=== PATIENT | male | born 1940 | race Caucasian/White ===

== ENCOUNTER 2020-01-01 14:45 | Outpatient (CLI) | payer MEDICARE, SELFPAY | END 2020-01-01 14:46 | disposition home or self-care (01) | LOC: CHSLAB 14:51 | PROVIDERS: Visit Provider Specialist | DX: C44.629 Squamous cell carcinoma of skin of left upper limb, including shoulder (principal); C44.622 Squamous cell carcinoma of skin of right upper limb, including shoulder | CPT/HCPCS: 88305 ==

== ENCOUNTER 2020-12-12 12:07 | Outpatient (CLI) | payer MEDICARE, SELFPAY | END 2020-12-12 12:08 | disposition home or self-care (01) | LOC: CHSLAB 12:11 | PROVIDERS: Visit Provider Specialist | DX: C44.622 Squamous cell carcinoma of skin of right upper limb, including shoulder (principal) | CPT/HCPCS: 88305 ==

== ENCOUNTER 2021-06-02 08:54 | Outpatient (CLI) | payer MEDICARE, SELFPAY | END 2021-06-02 08:55 | disposition home or self-care (01) | LOC: CHSLAB 08:57 | PROVIDERS: PCP Internal Medicine; Visit Provider Specialist | DX: C44.622 Squamous cell carcinoma of skin of right upper limb, including shoulder (principal) | CPT/HCPCS: 88305 ==

== ENCOUNTER 2023-08-30 12:13 | Outpatient (CLI) | payer MEDICARE, SELFPAY | END 2023-08-30 12:14 | disposition home or self-care (01) | LOC: CHSLAB 12:17 | PROVIDERS: PCP Internal Medicine; Visit Provider Specialist | DX: C44.629 Squamous cell carcinoma of skin of left upper limb, including shoulder (principal) | CPT/HCPCS: 88305 ==

== ENCOUNTER 2025-01-24 14:50 | Outpatient (CLI) | payer MEDICARE, SELFPAY ==
--- OUTSIDE RECORDS SUMMARY | 2025-01-24 16:47 | XMS_ITS | Data Portability ---
Author Organization [facility], [address] [facility] [place] ([place]) Address [address] [place] [address] Care Team Providers Care Short Filler Bunch Machine Operator Name Role Phone DARLENE PHAM Primary Care Provider [phone] Assessment Encounter Date Assessment Date Assessment LastModified by Organization Details LastModified Time 08/16/2024 08/16/2024 1. Hypertension stable. Continue current medications. He had labs in December and will return in 6 months at which time he will be due for laboratory testing and monitoring of his kidney function electrolytes. 2. He has a report of type 2 diabetes. A1c today is very normal. Will continue to monitor. He is not on any medication for diabetes. 3. History of prostate cancer. He will be due for another PSA in December. He knows to call with any concerns and has had no problems with urination. 4. Actinic keratosis. 2 lesions were treated with liquid nitrogen. He knows to return in 1 month if needed for retreatment. He does see dermatology also. He refuses vaccinations. I think is a political issue for him. See him back in 6 months or as needed for follow-up. Total amount of time 30 minutes [id number] Not available 08/19/2024 16:04:42 Plan of Treatment Reminders Order Date Submit Date Provider Last Modified By Organization Details Last Modified Time Details Appointments [facility] Patient 15.EST 2024 11:00A M Dr. Darleen Mcnulty Not available Not available Not available Lab None recorded . Referral None recorded . Procedures None recorded . Surgeries None recorded . Imaging None recorded . Medication Orders None recorded . Patient TargetsNo targets recorded. Patient InstructionsNo instructions recorded. Reason for Referral None Reported. Results Created Date Observation Date Name Description Value Unit Range Abnormal Flag Note LastModifiedBy Organization Detail LastModifiedTime 08/16/20 24 08/16/2024 hemog lobin A1C, finge rstic k fingerstick A1C endo Not Available [facility] [address] [place] [address], [id number], 08/16/2024 17:49:14 08/16/20 24 08/16/2024 hemog lobin A1C, amparo rstic k hemoglobin A1C, finger 5.8 %_A1C 4.3 - 5.6 high Not Available [facility] [address] [place] [address], [id number], 08/16/2024 17:49:14 08/16/20 24 08/16/2024 hemog lobin A1C, amparo rstic k fingerstick estimated ave [address] Not Available [facility] [address], [address], 08/16/2024 17:49:14 Result Notes None recorded. Problems Name Problem SNOMED Code Status Onset Date Resolution Date Notes Provider Name and Address Organization Details Recorded Time Fatigue 31747226 Active 2023 Elias Manriquez PA-C [address] [place] [address], [phone], [facility] 4 11:13:04 Type 2 diabetes mellitus 39235208 Active 2023 [facility] 4 22:42:13 Essential hypertensio n 63695758 Active 2023 [facility] Matt [facility] 4 22:43:28 History of malignant neoplasm of prostate 124446769 Active 2023 Olena Matt [facility] 4 22:43:44 Actinic keratosis 549898388 Active 2023 Darleen Mcnulty MD [address] [place] [address], [phone], [facility] 4 16:03:10 Problem Notes None recorded. Procedures Surgical History Date Name Laterality Status Provider Name and Address Organization Details Recorded Time anal sphincterotomy completed Nathanael Gutierrez [facility] 08/15/2024 22:45:45 Imaging Results None recorded. Procedure Notes None recorded. Medical Equipment None Reported. Allergies No known drug allergies Medications Name Sig Start Date Stop Date Status Note LastModified by Organization Details LastModified Time lisinopril 10 mg tablet Take 1 tablet by mouth once daily 2024 active Not Available Not Available Not Avai lable hydrochlorothiaz syed 25 mg tablet Take 1 tablet by mouth once daily 2024 active Not Available Not Available Not Avai lable Baby Aspirin 81 mg chewable tablet Chew 1 tablet every day by oral route. active Not Available Not Available No t Available Vitals Date Recorded Body height Body mass index (BMI) Body weight Body temperature Heart rate Oxygen saturation Oxygen saturation in Arterial blood by Pulse oximetry Systolic blood pressure Diastolic blood pressure Provider Name and Address Organization Details Last Updated DateTime 165.1 cm 27.8 kg/m2 16920.9 3 g 97.8 [degF] 74 /min 97 % 97 % 130 mm[Hg] 78 mm[Hg] [place] [facility] 16:56:21 Social History None recorded. Functional Status None recorded. Mental Status None recorded. Family History Relationship Description Onset Age of this Age Resolved Age Notes LastModified by Organization Details LastModified Time Father Family history of Cardiovascul ar disease [email or web address] Not available 08/15 22:44:48 Mother Family history of malignant neoplasm [email or web address] Not available 2023 22:45:04 Medical History No medical history recorded. Past Encounters Encounter ID Performer Location Encounter Start Date Encounter Closed Date Diagnosis/Indication Diagnosis SNOMED-CT Code Diagnosis ICD10 Code Diagnosis Note [id number] MD [facility] [address] [facility] [place] [address] 08/16/2024 16:15:34 08/17/2024 16:30:18 Essential hypertension 17506240 I10 History of malignant neoplasm of prostate 133290698 Z85.46 Type 2 carter betes mellitus 43540263 E11.9 Actinic keratosis 007 L57.0 Health Concerns Section Related Observation LastModified by Organization Detai ls LastModified Time None Recorded Concern Status LastModified by Organization Details LastModified Time None Recorded Advance Directives Directive None Recorded Payers Encounter Date Sequence Insurance Name Policy Number Policy Lewis Covered Member ID Lewis Member ID Guarantor Name 08/16/2024 1 [employer] (MEDICARE REPLACEMENT PPO) [id number] Bob Combs [id number] Bob Combs Notes Date Note Type Note Provider Name and Address Organization Details Recorded Time 08/16/2024 text/html Bob is a 89-year-old gentleman who lives in the community. He has hypertension, prostate cancer in the past. He has actinic keratosis on his left forearm and left index finger that he ask if I would treat. He stays physically active. He denies any problems today. Darleen Mcnulty MD [address] [facility], [place], [address], [facility] 08/19/2024 16:06:06
--- OUTSIDE RECORDS SUMMARY | 2025-01-24 16:47 | XMS_ITS | Clinical Summary ---
Author Organization [facility] Address [facility] [place] [address] Care Team Providers Care Long Lines Operator Name Role Phone Chastity Marks MD Primary Care Provider [phone] Tammi Webber MD Unavailable [phone] Beverly Espinosa APNP Unavailable [phone] Allergies No known active allergies Medications hydrochlorothia zide 25 MG tablet Take 25 mg by mouth every morning. Active aspirin EC (ASPIRIN) 81 MG EC tablet Take 81 mg by mouth daily. Active lisinopril 40 MG tablet Take 20 mg by mouth daily. 07/14/2018 Active PROAIR HFA 108 (90 Base) MCG/ACT inhaler Inhale 1 Inhaler into the lungs 3 (three) times a day. 12/28/2018 Active Active Problems Problem Noted Date Diagnosed Date Sialadenitis 12/31/2018 Premature atrial contractions 08/20/2018 Hypertension, essential 08/20/2018 Hypercholesterolemia 08/20/2018 Diabetes mellitus type 2, no ninsulin dependent ([facility] [address]) 08/20/2018 H/O poliomyelitis 08/20/2018 Family History Medical History Relation Comments Heart Attack Father Cancer Mother Relation Status Comments Father Mother Social History Tobacco Use Types Packs/Day Years Used Date Smoking Tobacco: Former Smokeless Tobacco: Never Alcohol Use Standard Drinks/Week Comments No 0 (1 standard drink = 0.6 oz pur e alcohol) AUDIT-C Answer Date Recorded Frequency of Alcohol Consumption Never 08/14/2018 Average Number of Drinks Not on file 018 Frequency of Binge Drinking Not on file 11/2017 Sex and Gender Information Value Date Recorded Sex Assigned at Not on file Legal Sex Male 9:15 PM PRINCIPAL TECHNOLOGIST Gender Identity Not on file Sexual Orientation Not on file Last Filed Vital Signs Vital Sign Reading Time Taken Comments Blood Pressure 154/75 01/02/2019 8:52 AM PRINCIPAL TECHNOLOGIST Pulse 66 01/02/2019 8:52 AM PRINCIPAL TECHNOLOGIST Temperature 36.7 C (98.1 F) 01/02/2019 8:52 AM PRINCIPAL TECHNOLOGIST Respiratory Rate 16 01/02/2019 4:25 AM PRINCIPAL TECHNOLOGIST Oxygen Saturation 98% 01/02/2019 8:52 AM PRINCIPAL TECHNOLOGIST Inhaled Oxygen Concentration - - Weight 83.8 kg (184 lb 11.9 oz) 12/31/2018 6:25 AM PRINCIPAL TECHNOLOGIST Height 162.6 cm (5' 4 ) 12/31/2018 6:25 AM PRINCIPAL TECHNOLOGIST Body Mass Index 31.71 12/31/2018 6:25 AM PRINCIPAL TECHNOLOGIST Plan of Treatment Health Maintenance Due Date Last Done Comments Kidney Health Evaluation 1939 Pneumococcal Vaccine: 65+ Ye ars (1 of 2 - PCV) 1945 Diabetes: Retinopathy Eye Exam 1957 DTaP, Tdap and Td Vaccines ( 1 - Tdap) 1958 Zoster Vaccines (1 of 2) 1989 Annual Medicare Wellness Visit 2004 RSV Immunization or 60+ Years (1 - 1-dose 75+ series) 2014 Hemoglobin A1C 07/01/2019 01/01/2019 Lipid Panel 08/14/2019 08/14/2018 COVID-19 Vaccine ( - 2023-2 5 season) 2024 Influenza Adult (#1) 2024 Meningococcal B Vaccine Aged Out No l onger eligible based on patient's age to complete this topic Meningococcal Vaccine Aged Out No carlos selin eligible based on patient's age to complete this topic RSV Immunizations Under 20 Months Aged Out No longer eligible based on patient's age to complete this topic Procedures Procedure Name Priority Date/Time Associated Diagnosis Comments HEMOGLOBIN, GLYCOSYLATED Routine 01/01/2019 6:12 PM PRINCIPAL TECHNOLOGIST LIPID PANEL Routine 08/14/2018 Abnormal EKG Family history of early CAD from Last 3 Months or Most Recently Relevant to Health Maintenance Results * (ABNORMAL) HEMOGLOBIN, GLYCOSYLATED (01/01/2019 6:12 PM PRINCIPAL TECHNOLOGIST) HGB A1C 6.6(H) 4.2 - 6.3 % 01/01/2019 8:35 PM PRINCIPAL TECHNOLOGIST [facility] ESTIMATED AVG GLUCOSE 143(H) 74 - 106 MG/DL 01/01/2019 8:35 PM PRINCIPAL TECHNOLOGIST [facility] 01/01/2019 6:12 PM PRINCIPAL TECHNOLOGIST us Rock Heaton MD LABORATORY Final Result [facility] [address] [place] [address], [id number] * (ABNORMAL) LIPID PANEL (08/14/2018) CHOLESTEROL 226(A) 0 - 200 HDL 43 TRIGLYCERIDES 130 LDL (CALCULATED) 130 08/14/2018 Tammi Webber MD LABORATORY Final Result from Last 3 Months or Most Recently Relevant to Health Maintenance Insurance Advance Directives * Full Code (Latest Code Status on File) Date Activated Date Inactivated Comments 12/31/2018 6:08 AM 01/02/2019 2:13 PM Care Teams Long Lines Operator Relationship Specialty Start [place] [address] [place] [address] PCP - General FAMILY PRACTICE 08/04/18 Tammi Webber MD [address] [place] [address] CARDIOVASCULAR DISEASE 08/04/18 Beverly Espinosa APNP [address] [place] [address] FAMILY PRACTICE 08/04/18
--- OUTSIDE RECORDS SUMMARY | 2025-01-24 16:47 | XMS_ITS | Patient Health Record ---
Author Organization [facility] Billing Info Address [address] [place], [place] [address] Care Team Providers Care Nurse Outreach Case Manager Name Role Phone PETER MCKAY MD Primary Care Provider Unavail able PETER MCKAY Unavailable [phone] Reason For Referral No Information Medications Medication SIG (Take, Route, Frequency, Duration) Notes Start Date End Date Status Lisinopril 40,g 1 tablet Orally qd f or 90 day(s) Active Nystatin-Triamcinolone 754948-2.1 UNIT/GM-% 1 application to affected area Externally Twice a day for 14 day(s) 11/19/2013 Active Aspirin 81 MG 1 tablet Orally Once a day for 30 day(s) Active Problems Problem Type SNOMED Code ICD Code Onset Dates Problem Status W/U Status Risk Notes Problem 21594518 Diabetes mellitu s without mention of complication, type II or unspecified type, not stated as uncontrolled (250.00) Active confirmed Problem 848103838 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) Active confirmed Migrate d-Pro blemList-344 [facility]01/09/20 13 Problem 207624489 Pure hypercholesterolemia (272.0) Active confirmed Problem 46151101 Other and unspec ified hyperlipidemia (272.4) Active confirmed Migra ren-Pro blemList-344 [facility]01/09/20 13 Problem 27472439 Unspecified esse ntial hypertension (401.9) Active confirmed Problem 90844682 Unspecified sinu sitis (chronic) (473.9) Active confirmed Migrated-P ro blemList-344 -[facility]01/09/20 13 Problem Family history of prostate cancer (647704891) Family history of malignant neoplasm, prostate (V16.42) Active confirmed Problem 702230384 Encounter for long-term (current) use of other medications (V58.69) Active confirmed Migrate d-Pro blemList-344 [facility] Rudi Lopez-01/09/20 13 Problem 449213137 Rash (782.1) Active confirmed Plan Of Treatment No Information Insurance Providers Payer Name Payer Address Payer Phone Subscriber Number Group Number Insured Name Patient Relationship to Insured Coverage Start Date Coverage End Date [facility] [id number] [place], [place] [id number] Bob Combs Self - patient is the insured 3 9 Medical (General) History Medical History History ICD Code PSA-02/25/2012 EKG ECHO Colonoscopy-2003 Due in 2013 Hemoccult-02/2012 Influenza 07/2012 Pneumonia 12/2012 Tetanus thirty years ago HGB A1C-07/03/2012 Glrkm-Bxxzml-70/2011 DYSLIPIDEMIA HYPERTENSION PROSTATE CANCER PMH of elevated A1C Surgical History Surgery Date(Month/Year) PROSTATECTOMY T & A Hospitalization History Reason Date(Month/Year) possible bronchitis 2010
== END 2025-01-24 14:51 | disposition home or self-care (01) ==
LOC: CHSLAB 14:54
PROVIDERS: PCP Specialist; Visit Provider Specialist
DX: C44.02 Squamous cell carcinoma of skin of lip (principal)
CPT/HCPCS: 88305